=== PATIENT | male | born 1990 | race Caucasian/White ===

== ENCOUNTER 2022-03-12 19:12 | Outpatient (CLI) | payer BC, SELFPAY ==
--- NOTE | 2022-03-14 14:39 | W.PM.SLEEP ---
Sleep Study Details Details Interpreting Provider: Alfa Arndt MD Date of Sleep Study: 03/12/22 Sleep Study Details: STUDY TYPE:? Home ? BMI:? Not recorded ORDERING PROVIDER:? Alexandra INDICATION:? Concerns about sleep apnea ? SLEEP SUMMARY:? 479.4 monitored minutes RESPIRATORY SUMMARY:? AHI 6.8. The entire study was done in the supine position Low oxygen 84 0.3% of study oxygen below 90%, 0.1% of study below 85% Snoring% 19.3 PERIODIC LIMB MOVEMENTS OF SLEEP:? Not recorded CARDIAC:? 67-114, mean 95.8 IMPRESSION:? Mild obstructive sleep apnea RECOMMENDATION: Treatment options include AutoSet CPAP versus dental appliance.
--- NOTE | 2022-04-18 13:18 | W.PM.SLEEP ---
Sleep Study Details Details Interpreting Provider: Alfa Arndt MD Date of Sleep Study: 03/12/22 Sleep Study Details: STUDY TYPE:? Home ? BMI:? Not recorded ORDERING PROVIDER:? Alexandra INDICATION:? Concerns about sleep apnea ? SLEEP SUMMARY:? 479 minutes monitored RESPIRATORY SUMMARY:? AHI 6.8. Note the entire study was done in the supine position Low oxygen 84 0.3% of study oxygen less than 90%, 0.1% of study less than 85% Snoring 19.3% PERIODIC LIMB MOVEMENTS OF SLEEP:? Not recorded CARDIAC:? 67-114, mean 95.8 IMPRESSION:? Mild obstructive sleep apnea RECOMMENDATION: Treatment options if the patient has daytime hypersomnolence include CPAP AutoSet 4-17, dental appliance, weight loss and/or airway expansion surgery
== END 2022-03-12 19:13 | disposition home or self-care (01) ==
LOC: SLEEP 19:12
PROVIDERS: Visit Provider Otolaryngology
DX: G47.33 Obstructive sleep apnea (adult) (pediatric) (principal)
CPT/HCPCS: 95806

== ENCOUNTER 2024-05-18 08:39 | Outpatient (CLI) | payer BC, SELFPAY | END 2024-05-18 08:40 | disposition home or self-care (01) | PROVIDERS: Visit Provider Physician Assistant | DX: O20.9 Hemorrhage in early pregnancy, unspecified (principal) | CPT/HCPCS: 84702; 86850; 86900; 86901; J2791 ==

== ENCOUNTER 2024-05-18 11:54 | Outpatient (CLI) | payer BC, SELFPAY ==
--- NOTE | 2024-05-18 12:15 | CRLHL7_ITS ---
For Patients: As a result of the Century Cures Act, medical imaging exams and procedure reports are released immediately into your electronic medical record. You may view this report before your referring provider. If you have questions, please contact your health care provider. INDICATION: bleeding in early COMPARISON: None. TECHNIQUE: Real-time matthew-scale imaging of the pelvis was performed. FINDINGS: No intrauterine or ectopic . No abnormal vascularity associated with the endometrium. The endometrium is heterogeneous and measures 10 millimeters. No significant endometrial fluid. Normal left ovary which measures 2.4 x 1.7 x 2.1 cm. Normal right ovary which measures 2.0 x 2.4 x 1.5 cm. No excess pelvic free fluid. IMPRESSION: No intrauterine or ectopic . No evidence of retained products. Dictated by Harinder Adame MD @ 05/18/2024 6:56:43 PM (Electronically Signed)
== END 2024-05-18 11:55 | disposition home or self-care (01) ==
LOC: US 11:56
PROVIDERS: Visit Provider Physician Assistant
DX: O20.9 Hemorrhage in early pregnancy, unspecified (principal); O02.1 Missed abortion
CPT/HCPCS: 76817

== ENCOUNTER 2024-06-18 07:59 | Outpatient (CLI) | payer BC, SELFPAY | END 2024-06-18 08:00 | disposition home or self-care (01) | PROVIDERS: Visit Provider Physician Assistant | DX: N92.6 Irregular menstruation, unspecified (principal); L70.9 Acne, unspecified; E66.9 Obesity, unspecified; N96 Recurrent pregnancy loss | CPT/HCPCS: 80061; 82947; 83498; 83525; 84146; 84270; 84402; 84403; 84443; 85520; 85525; 85598; 85610; 85613; 85670; 85730; 86147 ==

== ENCOUNTER 2024-12-29 08:31 | Outpatient (CLI) | payer BC, SELFPAY | END 2024-12-29 08:32 | disposition home or self-care (01) | LOC: NFLDREF 08:32 | PROVIDERS: Visit Provider Physician Assistant | DX: N96 Recurrent pregnancy loss (principal) | CPT/HCPCS: 84702 ==

== ENCOUNTER 2024-12-31 15:50 | Outpatient (CLI) | payer BC, SELFPAY | END 2024-12-31 15:51 | disposition home or self-care (01) | LOC: NFLDREF 01-07 04:12 | PROVIDERS: Visit Provider Physician Assistant | DX: Z34.91 Encounter for supervision of normal pregnancy, unspecified, first trimester (principal) | CPT/HCPCS: 84702; 87086 ==

== ENCOUNTER 2025-01-21 13:29 | Outpatient (CLI) | payer BC, SELFPAY ==
--- NOTE | 2025-01-21 14:00 | CRLHL7_ITS ---
For Patients: As a result of the Century Cures Act, medical imaging exams and procedure reports are released immediately into your electronic medical record. You may view this report before your referring provider. If you have questions, please contact your health care provider. OBSTETRICAL ULTRASOUND TRANSVAGINAL CLINICAL INDICATION: Dating and viability. LMP: 11/25/2024 SYBIL by LMP: 09/01/2025 Gestational age: 8 weeks 1 day Previous ultrasound: No TECHNIQUE: Real-time matthew-scale imaging of the fetus was performed transvaginal. Transvaginal imaging was performed for better visualization of the endometrium and ovaries. FINDINGS: CRL: 0.8 cm, 6 weeks 5 days; SYBIL 09/11/2025 heart rate: 144 BPM Gestational sac: 2.25 cm, appears within normal limits Yolk sac: 2.3 mm, appears within normal limits Right ovary: 2.2 x 2.7 x 1.3 cm Left ovary: 5.0 x 3.1 x 3.4 cm, CL IMPRESSION: 1. Single living intrauterine measures 6 weeks 5 days with sonographic due date of 09/11/2025. 2. Simple left ovarian cyst measures 3.0 x 3.2 x 2.7 cm. HARINDER WALLER M.D. Diagnostic Radiologist [email or web address] Transcribed: 5:[address]/Dictated by: Harinder Waller MD @ 01/21/2025 4:28:00 PM (Electronically Signed)
== END 2025-01-21 13:30 | disposition home or self-care (01) ==
LOC: US 13:30
PROVIDERS: Visit Provider Physician Assistant
DX: O34.81 Maternal care for other abnormalities of pelvic organs, first trimester (principal); N83.292 Other ovarian cyst, left side; Z3A.01 Less than 8 weeks gestation of pregnancy
CPT/HCPCS: 76817; 83021; 86703; 86706; 86803; 86850; 86900; 86901; 87086; 87340; 87491; 87591; 87624

== ENCOUNTER 2025-01-21 15:30 | Outpatient (CLI) | payer BC, SELFPAY ==
[2025-01-21 18:31] LABS: Chlamydia DNA Amplified* NOT DETECTED (No Detected); GC DNA Amplified* NOT DETECTED (No Detected)
[2025-01-26 10:12] LABS: Pap Test Digital Imaging Done
[2025-01-27 04:57] LABS: HPV Source Cervix
== END 2025-01-21 15:31 | disposition home or self-care (01) ==
PROVIDERS: Visit Provider Physician Assistant
DX: Z34.91 Encounter for supervision of normal pregnancy, unspecified, first trimester (principal)
CPT/HCPCS: 83020; 83021; 85660; 86592; 86703; 86704; 86706; 86762; 86787; 86803; 86850; 86900; 86901; 87086; 87340; 87491; 87591; 87624; 87625; 88141; 88142; 88175

== ENCOUNTER 2025-02-09 09:03 | Outpatient (CLI) | payer BC, SELFPAY ==
--- NOTE | 2025-02-09 09:15 | CRLHL7_ITS ---
For Patients: As a result of the Century Cures Act, medical imaging exams and procedure reports are released immediately into your electronic medical record. You may view this report before your referring provider. If you have questions, please contact your health care provider. OB ULTRASOUND LESS THAN 14 WEEKS CLINICAL HISTORY: Follow-up viability. TECHNIQUE: Grayscale and color Doppler ultrasound of the uterus and ovaries from a transabdominal and transvaginal approach. Transvaginal ultrasound of the pelvis was performed to better evaluate the genitourinary organs such as the ovaries and/or endometrium. FINDINGS: Imaging: TV. LMP: 11/25/2024. SYIBL by LMP: 09/01/2025. GA: Not using. Previous US: 01/21/2025. SYBIL by US: 09/11/2025. GA: 9 weeks 3 days. CRL: 30 cm, 9 weeks 6 days. SYBIL 09/08/2025. FHR: 176 bpm. GEST SAC: 3.7 cm, appears WNL. YOLK SAC: 3.7 mm, appears WNL. RIGHT OV: WNL, 2.7 x 1.8 x 1.8 cm. LEFT OV: WNL, 3.8 x 2.9 x 3.2 cm. CL. IMPRESSION: 1. Single living intrauterine measures 9 weeks 6 days with sonographic due date 09/08/2025. 2. Simple left ovarian cyst measures 2.9 x 1.9 x 2.2 cm. Harinder Adame M.D. Diagnostic Radiologist [email or web address] Transcribed: 1:42 pm DW/Dictated by: Harinder Adame MD @ 02/09/2025 11:52:00 AM (Electronically Signed)
== END 2025-02-09 09:04 | disposition home or self-care (01) ==
LOC: US 09:04
PROVIDERS: Visit Provider Physician Assistant
DX: O34.81 Maternal care for other abnormalities of pelvic organs, first trimester (principal); N83.292 Other ovarian cyst, left side; Z3A.09 9 weeks gestation of pregnancy
CPT/HCPCS: 76817